=== PATIENT | male | born 1980 | race Caucasian/White ===

== ENCOUNTER → 2018-07-02 | Day surgery (SDC) | payer OTHER ==
[~2018-07-02] MED LIST: ACETAMINOPHEN 1000 MG/100 ML IV ONE; ASPIR 8181 MG PO; BACITRACIN 50,000 UNIT VIAL ONE; BUPIVACAINE HCL 0.5% INJ 30 ML VIAL INJ ONE; CEFAZOLIN SOD 1 GM/NS 50ML 50 ML IV ONE; CRESTOR10 MG PO; CYCLOBENZAPRINE5 MG PO; DEXAMETHASONE SOD PHOS INJ 4 MG/ML VIAL ONE; FENTANYL CITRATE/PF 100MCG/2 ML INJ ONE; KETOROLAC TROMETHAMINE 30 MG/ML VIAL ONE; LIDOCAINE HCL 2% LOCAL INJ 5 ML SDV VIAL INJ ONE; LOSARTAN POTAS100 MG PO; MIDAZOLAM HCL 2 MG/2 ML VIAL ONE; MULTI-VITAMIN1 EACH PO; ONDANSETRON HCL INJ 2MG/ML 2ML 2 MG/ML VIAL ONE; PRILOSEC10 M1 PO; PROPOFOL IV EMULSION 10 MG/ML 20 ML VIAL ONE; SEVOFLURANE INHAL SOLN 250 ML PEN BTL ONE; SINGULAIR10 MG PO; [UNRECOGNIZED DRUG - OTHER] PO
[2018-07-02 09:00] VITALS: BP 108/83
--- NOTE | 2018-07-02 14:02 | Operative Report ---
DATE OF PROCEDURE: 07/02/2018 SURGEON: Tej Lynch DPM PREOPERATIVE DIAGNOSES: 1. Fractured sesamoid, right foot, medial sesamoid, right foot. 2. First metatarsal cuneiform exostosis, right foot. 3. Right 4th digit exostosis. 4. Right 5th digit exostosis. PLANNED PROCEDURE: Right tibial sesamoidectomy, right 1st metatarsal cuneiform exostectomy, right 4th digit exostectomy and 5th digit exostectomy. ANESTHESIA: General with a postoperative block consisting of 25 mL of 0.5% Marcaine plain. HEMOSTASIS: Pneumatic ankle tourniquet set at 250 mmHg for a total time of approximately 40 minutes. MATERIALS: 3-0 Vicryl, 4-0 Prolene. ESTIMATED BLOOD LOSS: Less than 10 mL. PATHOLOGY: None. PROCEDURE NOTE: The patient was seen in the preop waiting room. The correct procedure and site were identified. The patient is brought to the operating room, placed on the operating table in the supine position. General anesthesia was initiated. At this time, a well-padded pneumatic tourniquet was placed about the patient's right ankle. The right foot, ankle, leg was then scrubbed, prepped, and draped in the usual aseptic manner. The right ankle leg was exsanguinated with an Esmarch bandage and the pneumatic thigh tourniquet was inflated to 350 mmHg for a total time of approximately 40 minutes. Attention was directed to the medial aspect of the patient's right 1st metatarsophalangeal joint where a 3 cm linear incision was made. Incision was carried through the subcutaneous tissue it from deeper underling structures. All vital neurovascular structures were identified, retracted medially and laterally, and all bleeders were cauterized or ligated as deemed necessary. A linear capsulotomy was performed at the plantar aspect of the 1st metatarsophalangeal joint where the fractured tibial sesamoid was easily identified. It was grasped with a Lilian and excised from the operative site and passed off to the back table. It was noted to be in several fragments. The wound was then flushed with copious amounts of sterile saline. Capsule and deep tissue were reapproximated with 3-0 Vicryl, subcutaneous tissue with 3-0 Vicryl. The skin was closed using a running interlocking stitch of 4-0 Prolene. Next procedure, attention was then directed to the 1st metatarsal cuneiform joint where a 4 cm linear incision made. Incision was carried through subcutaneous tissue it from deeper underling structures. All vital neurovascular structures were identified, retracted medially and laterally, and all bleeders were cauterized and ligated as deemed necessary. At this time, 1st metatarsal cuneiform capsular incision site was performed and reflected medially and laterally to allow for good visualization of the exostosis. Utilizing an osteotome and mallet this was excised. The exostosis was excised and passed off to the back table and was smoothed utilizing a Rose bur as well as a hand rasp. The wound was then flushed with copious amounts of sterile saline. Capsule and deep tissues were reapproximated with 3-0 Vicryl, subcutaneous tissue with 3-0 Vicryl. The skin was closed using a running interlocking stitch of 4-0 Prolene. Attention was directed to the lateral aspect of the patient's 4th digit where a stab incision was made directly over the lateral exostosis. This was carried down to the level of bone. Utilizing a Rose bur, the exostosis was shaved. The wound was then flushed with copious amounts of sterile saline. The skin was closed utilizing simple interrupted sutures of 4-0 Prolene. Next, attention was directed to the 5th digit, where a stab incision was made on the medial aspect of the digit as well as the lateral aspect of the digit. This was carried down to the level of bone utilizing a Rose bur. The exostosis on the medial and lateral aspect of the 5th digit was shaved to anatomic alignment, flushed with copious amounts of sterile saline and the skin was reapproximated utilizing simple interrupted sutures with 4-0 Prolene. All incision sites were dressed with Adaptic, 4x4s, Kerlix, Rogerio wrap, and a postop shoe. The patient tolerated all procedures and anesthesia well. The patient was transferred to the postoperative recovery room with vital signs stable and vascular status intact. The patient was monitored there for a short period of time before being sent home with the following written and oral instructions. 1. Keep the dressing clean, dry, and intact. 2. The patient is to remain partial weightbearing in a postop shoe to avoid excessive ambulation until being seen in the office. 3. The patient was given office number to contact us if any problems arise. ANTHONY Caputo/ROBIN /[id number]
== END | disposition home or self-care (01) ==
LOC: OR 05:09
PROVIDERS: ATTEND Podiatrist Foot & Ankle Surgery
DX: S92.811A Other fracture of right foot, initial encounter for closed fracture (principal); M89.9 Disorder of bone, unspecified; I10 Essential (primary) hypertension; I20.9 Angina pectoris, unspecified; H91.90 Unspecified hearing loss, unspecified ear; K21.9 Gastro-esophageal reflux disease without esophagitis; I49.9 Cardiac arrhythmia, unspecified; E78.00 Pure hypercholesterolemia, unspecified; T78.40XA Allergy, unspecified, initial encounter; X58.XXXA Exposure to other specified factors, initial encounter; Z79.82 Long term (current) use of aspirin; Z01.810 Encounter for preprocedural cardiovascular examination; Z87.891 Personal history of nicotine dependence
CPT/HCPCS: 28104; 28108 ×2; 28315; 93005; J0131; J0690; J1100; J1885; J2001; J2250; J2405; J2704